=== PATIENT | male | born 1965 | race Caucasian/White ===

== ENCOUNTER 2021-12-10 09:55 | Outpatient (RCR) | payer OTHER, SELFPAY ==
--- NOTE | 2021-12-10 11:04 | PTOPEVAL ---
Thank you for referring Yosvany Flood to [facility].? The patient is scheduled to be seen for therapy? ____x/week for ___ weeks. Please review, sign, date and return this plan of care NIKA. I agree with and certify that the following plan of care is medically necessary. Referring Physician Date Admitting Provider: Attending Provider: Eleuterio Singleton Referring Provider: ROSEMARIE Outpatient Evaluation Start: 12/10/21 10:04 Freq: Status: Active Protocol: Document 12/10/21 10:05 ACR (Rec: 12/10/21 11:04 ACR [id number]) Therapy Assessment Status Assessment Status Assessment Status Evaluation Evaluation Information Problem Diagnosis R knee replacement Onset 10/24/21 Subjective Information Patient states that he had a Query Text:As Reported By Patient/ knee replacement in october Family due to end stage arthritis. He states that home health came to his home two times a week for 6 weeks and they just ended last week. He states that he walked with a walker for about 5 weeks then just transitioned to a cane last week. He states that bending his knee is difficult, getting up and down, going up and down steps, and walking for a period of time. He states that driving is difficult for him if it is a prolonged period of time. He states that he is taking hydrocone as needed. He patient states that his goal for therapy is to get his movement back. 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
--- NOTE | 2021-12-10 11:58 | PTOPEVAL ---
Thank you for referring Yosvany Flood to [facility].? The patient is scheduled to be seen for therapy? ____x/week for ___ weeks. Please review, sign, date and return this plan of care NIKA. I agree with and certify that the following plan of care is medically necessary. Referring Physician Date Admitting Provider: Attending Provider: Eleuterio Singleton Referring Provider: ROSEMARIE Outpatient Evaluation Start: 12/10/21 10:04 Freq: Status: Active Protocol: Document 12/10/21 10:05 ACR (Rec: 12/10/21 11:04 ACR [id number]) Therapy Assessment Status Assessment Status Assessment Status Evaluation Evaluation Information Problem Diagnosis R knee replacement Onset 10/24/21 Subjective Information Patient states that he had a Query Text:As Reported By Patient/ knee replacement in october Family due to end stage arthritis. He states that home health came to his home two times a week for 6 weeks and they just ended last week. He states that he walked with a walker for about 5 weeks then just transitioned to a cane last week. He states that bending his knee is difficult, getting up and down, going up and down steps, and walking for a period of time. He states that driving is difficult for him if it is a prolonged period of time. He states that he is taking hydrocone as needed. He patient states that his goal for therapy is to get his movement back. 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
--- NOTE | 2022-01-03 11:22 | PTOPEVAL ---
Thank you for referring Yosvany Flood to [facility].? The patient is scheduled to be seen for therapy? ____x/week for ___ weeks. Please review, sign, date and return this plan of care NIKA. I agree with and certify that the following plan of care is medically necessary. Referring Physician Date Admitting Provider: Attending Provider: Eleuterio Singleton Referring Provider: ROSEMARIE Outpatient Evaluation Start: 12/10/21 10:04 Freq: Status: Active Protocol: Document 01/03/22 10:01 ACR (Rec: 01/03/22 11:21 [facility] [id number]) Therapy Assessment Status Assessment Status Assessment Status Progress Evaluation Information Problem Diagnosis R knee replacement Onset 10/24/21 Subjective Information Patient states that since Query Text:As Reported By Patient/ beginning therapy he is doing Family better, but still has difficulty on uneven terrain. He states that his balance is off and the knee still snaps in and out which causes discomfort. The patient still has difficulty with going up and down steps. Pain Assessment Timing of Pain Assessment Timing of Pain Assessment Assessment Pain Scale Pain Scale Used Numeric (1 - 10) Self Report Pain Assessment Right Knee(s) Reported Pain Level 2 Greatest Pain Intensity 6 Pain Score Pain Score 2: Self Report Interventions Used Interventions Used By Clinicians Activity or ADL's,Exercise Lower Extremity Muscle Strength Testing Knee Strength Right Knee Flexion Strength 4+ Good + Knee Extension Strength 4+ Good + Left Knee Flexion Strength 4+ Good + Knee Extension Strength 4+ Good + Extremity Circumference Assessment Circumference Assessment Location Right Body Part Knee Site Descriptor ([place]) medial joint line Circumference (cm) 51 Gait Assessment Gait Assessment Additional Ambulation Comments Patient ambulates with antalgia and excessive compensated trendelberg on the L. The patient is provided a heel lift on the L and demonstrates a better gait pattern, but it is still antalgic. Stair Climbing Assessment Stair Climbing Assessment Stair Climbing Comments Patient navigates the stairs with a lot of UE assist ascending and descending
== END 2022-01-31 23:59 | disposition home or self-care (01) ==
LOC: CHSPT 09:55
PROVIDERS: PCP Family Medicine
DX: Z96.651 Presence of right artificial knee joint (principal)
CPT/HCPCS: 97016; 97110; 97112; 97140; 97161; 97530

== ENCOUNTER 2022-12-09 09:44 | Outpatient (RCR) | payer OTHER, SELFPAY ==
--- NOTE | 2022-12-09 10:51 | PTOPEVAL1 ---
Assessment and note entered by Butch Ortiz Evaluation Information Assessment Status Evaluation Diagnosis left TKA Onset 10/24/22 Subjective Information Pt. reports he underwent a left TKA on 10/24/22. He reports that he has been doing HH therapy since surgery. He reports that he recently has onset of pain in the described left quad. He reports that he is having pain with lifting the left leg into bed. He states that he is no longer using a cane. He reports taht he cannot walk on uneven ground and notices trouble with getting up and down steps. He states that he is still noticing swelling in the left knee. 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 He reports that prior to injury he was able to climb into the trunk and onto the trailer. He reports that his goal is to walk easier and be able to bend the knee easier. Reported Pain Level Pain Score 2: Self Report Assessment PT Clinical Summary Pt. is a 57 year old male who enters the clinic approximately 6 weeks post left TKA. He presents with impaired gait, impaired l.e. strength, impaired left knee flexion ROM and functional decline. Continued skilled PT is indicated in order to improve these areas to allow for improved IADL performance and safe return to work related duties. Plan of Care Interventions Electrical Stimulation,Gait Training,Hot Pack/Cold Pack,Intermittent Compression,Manual Therapy, Therapeutic Activities,Therapeutic Exercise,Self- Care/Home Management PT Services Indicated Yes Treatment Frequency and 2x/week x 12 visits Duration These treatments will address the objective and functional deficits as defined above. The patient will be advanced safely and appropriately in order for the patient to progress towards his/her prior level of function. Additional exercises will be introduced and as well as a comprehensive home exercise program upon discharge, if needed, ?to ensure carryover of functional gains achieved in the clinic. This treatment plan has been reviewed and agreement upon by the patient.
--- NOTE | 2023-01-06 11:12 | PTOPEVAL1 ---
Assessment and note entered by Butch Ortiz Evaluation Information Assessment Status Progress Diagnosis left TKA Onset 10/24/22 Subjective Information Pt. reports that he still is having some pain. He is noticing that stairs are getting easier, but feels that he still requires a handrail. He states that pain still is present on the outside of the left knee, especially with standing for long periods of time. Reported Pain Level Pain Score 3: Self Report Assessment PT Clinical Summary Pt. has attended a total of 9 treatment sessions. He has demonstrated improvements in both strength and mobility during therapy. He still demonstrates difficulty regarding quad weakness, especially noted with stair navigation despite improvement. Continued skilled PT is indicated Plan of Care Interventions Gait Training,Manual Therapy,Neuro Re-education, Patient/Caregiver Educati,Therapeutic Activities, Therapeutic Exercise PT Services Indicated Yes Treatment Frequency and Continue treatment 2x/week x 4 visits Duration These treatments will address the objective and functional deficits as defined above. The patient will be advanced safely and appropriately in order for the patient to progress towards his/her prior level of function. Additional exercises will be introduced and as well as a comprehensive home exercise program upon discharge, if needed, ?to ensure carryover of functional gains achieved in the clinic. This treatment plan has been reviewed and agreement upon by the patient.
--- NOTE | 2023-01-16 10:58 | PTOPPROG ---
Assessment and note entered by Kecia Chacon, PT Evaluation Information Assessment Status Progress Diagnosis L knee pain Onset 10/24/22 Subjective Information Yosvany Flood reports he continues to have left knee pain that is worse in the evenings. He also has increased pain with walking on uneven terrain and with stairs. He will see his doctor again on and at his last follow up on 01/13/23, he was referred back to PT for 8 more visits. Assessment PT Clinical Summary Yosvany Flood has completed 12 skilled PT visits for left knee pain. He is reporting that his left knee continues to be painful by the end of the day , with walking on uneven terrain, and with stair navigation. He objectively demonstrates improved overall strength, knee ROM, and gait. He continues to demonstrate decreased and painful left knee flexion ROM, decreased left knee and hip strength, decreased balance, impaired gait, and decreased functional abilities. He will continue to benefit from skilled PT to further address these physical and functional limitations. Plan of Care Interventions Electrical Stimulation,Hot Pack/Cold Pack, Intermittent Compression,Manual Therapy,Neuro Re- education,Patient/Caregiver Educati,Therapeutic Activities,Therapeutic Exercise PT Services Indicated Yes Treatment Frequency and 2 times a week for 6 visits Duration These treatments will address the objective and functional deficits as defined above. The patient will be advanced safely and appropriately in order for the patient to progress towards his/her prior level of function. Additional exercises will be introduced and as well as a comprehensive home exercise program upon discharge, if needed, ?to ensure carryover of functional gains achieved in the clinic. This treatment plan has been reviewed and agreement upon by the patient.
== END 2023-02-12 23:59 | disposition home or self-care (01) ==
LOC: CHSPT 09:44
DX: M25.562 Pain in left knee (principal); Z96.652 Presence of left artificial knee joint
CPT/HCPCS: 97014; 97016; 97110; 97112; 97140; 97161; 97530; 97750; G0283